=== PATIENT | male | born 1960 | race Two or more races ===

== ENCOUNTER 2017-05-02 05:21 | Inpatient (IN) | payer OTHER ==
[~2017-05-02] VITALS: Ht 177.8 cm; Wt 117.9 kg
[2017-05-02 04:00] VITALS: BP 107/66
[2017-05-02] MEDS ORDERED: ACETAMINOPHEN 325 MG TABLET ONE (06:07)
[2017-05-02] MEDS ORDERED: METOCLOPRAMIDE HCL 10 MG/2 ML VIAL ONE (06:07)
[2017-05-02] MEDS ORDERED: oxyCODONE HCL SR 10MG TAB.SR.12H PO ONE (06:07)
[2017-05-02] MEDS ORDERED: CELECOXIB 100 MG CAPSULE ONE (06:09)
[2017-05-02] MEDS ORDERED: BUPIVACAINE 0.5 % PF 150 MG/30 ML VIAL ONE (06:38)
[2017-05-02] MEDS ORDERED: MORPHINE SULFATE INJ 10 MG/ML DISP.SYRIN ONE (06:38)
[2017-05-02] MEDS ORDERED: KETOROLAC TROMETHAMINE INJ 30 MG/ML VIAL ONE ×2 (06:38→11:08)
[2017-05-02] MEDS ORDERED: BACITRACIN 50000 UNITS/VIAL ONE (06:43)
[2017-05-02] MEDS ORDERED: FENTANYL PF 100MCG/2ML AMPUL ONE (06:46)
[2017-05-02] MEDS ORDERED: MORPHINE SULFATE/PF 10 MG/10ML (1MG/ML) AMPUL ONE (06:46)
[2017-05-02] MEDS ORDERED: MIDAZOLAM HCL 2 MG/2ML VIAL ONE (06:47)
[2017-05-02] MEDS ORDERED: TRANEXAMIC ACID 1,500 MG in SODIUM CHLORIDE IRRIG SOLUTION 85 ML IR ONE (08:00)
[2017-05-02] MEDS ORDERED: oxyCODONE IR immediate release 5 MG CAPSULE ONE (11:08)
[2017-05-02] MEDS ORDERED: ONDANSETRON HCL/PF 4 MG/2 ML VIAL IV PRN (11:30)
[2017-05-02] MEDS: KETOROLAC TROMETHAMINE INJ 30 MG/ML VIAL IM SCH ×3 (11:30→22:48)
--- NOTE | 2017-05-02 11:30 | NUR ---
RN OLENA RECEIVED PATIENT FROM DAY SURGERY AWAKE ALERT ORIENTED X 4 NO PAIN AT THE MOMENT, SPINAL ANESTHESIA GIVEN FROM OR AFEBRILE WITH LEFT KNEE DRESSING, DRY AND INTACT PLACED ON HIS COMFORTABLE POSITION MONITORED CLOSELY
[2017-05-02 12:00] VITALS: BP_SYST 114; BP_SYST 126; BP_DIAS 66; BP_DIAS 82
[2017-05-02] MEDS ORDERED: ASPIRIN 300 MG/SUPP.RECT RC ONE (12:00)
[2017-05-02] MEDS ORDERED: DOCUSATE SODIUM 100 MG CAPSULE PO PRN (12:00)
[2017-05-02] MEDS ORDERED: ACETAMINOPHEN 325 MG TABLET PO PRN (12:00)
[2017-05-02] MEDS ORDERED: BISACODYL SUPP (10 MG) 10 MG/SUPP.RECT SUPP.RECT RC PRN (12:30)
[2017-05-02] MEDS ORDERED: MAGNESIUM HYDROXIDE 30 ML UDC PO PRN (12:30)
[2017-05-02] MEDS ORDERED: ASPIRIN 600 MG/SUPP.RECT RC ONE (12:30)
[2017-05-02] MEDS ORDERED: ZOLPIDEM TARTRATE 5 MG TABLET PO PRN (12:30)
[2017-05-02] MEDS: IV D5/0.45 NACL 1,000 ML IV PRN (13:10)
[2017-05-02] MEDS: HYDROMORPHONE INJ 2 MG/ML DISP.SYRIN IV PRN (14:21)
[2017-05-02] MEDS: ANCEF 1 GM/50 ML D5W IV SCH ×4 (14:23→22:40)
--- NOTE | 2017-05-02 15:17 | NUR ---
KATHLEEN HYATT ASPIRIN SUPPOSITORY 600 MG, DOUBLE ENTRY, MEDS GIVEN Addendum: 05/02/17 at 1519 by CHAN WIGGINS RN TORADOL GIVEN IN PACU
--- NOTE | 2017-05-02 15:46 | NUR ---
RN OLENA SEEN BY PT, CPM IN PLACED PATIENT REFUSED TO AMBULATE WILL BE AMBULATING KEARA
[2017-05-02 16:00] VITALS: BP 107/66
[2017-05-02] MEDS: CELECOXIB 100 MG CAPSULE PO SCH (17:23)
[2017-05-02] MEDS: ASPIRIN EC 325 MG TABLET.DR PO SCH (17:30)
[2017-05-02 20:00] VITALS: BP 106/55
--- NOTE | 2017-05-02 20:00 | NUR ---
OLENA RN NOTES RECEIVED PTS ON BED AWAKE ALERT AND VERBALLY RESPONSIVE, ABLE TO MAKE NEEDS KNOWN.,ON TELE SR ON THE MONITOR.NO SOB NO DISTRESS NOTED NO C/O OF PAIN AT THIS TIME. ON ROOM AIR SATING 97% , V/S STABLE AND AFEBRILE.S/P L TOTAL KNEE ARTHROPLASTY, WITH GOOD CIRCULATION COLOR AND SENSATION, WITH KNEE BRACE, DRESSING DRY INTACT AND PATENT NO BLEEDING NOTED, FAMILY AT BEDSIDE UPDATED WITH PTS CURRENT CONDITION .ALL NEEDS ATTENDED TOO ,CALL LIGHT WITHIN REACH , DUE MEDS GIVEN ORDERED. KEPT PTS CLEAN DRY AND COMFORTABLE.
[2017-05-02] MEDS: HYDROCODONE/APAP 5/325MG 1 EACH TABLET PO PRN (21:15)
[2017-05-02] MEDS ORDERED: CEFAZOLIN 1 GM ONE (22:33)
[2017-05-03] VITALS (7 sets, daily range): BP systolic 97–108; BP diastolic 54–61
[2017-05-03] MEDS: HYDROCODONE/APAP 5/325MG 1 EACH TABLET PO PRN ×4 (02:31→20:28)
[2017-05-03] MEDS: IV D5/0.45 NACL 1,000 ML IV PRN ×2 (02:32→15:53)
[2017-05-03] MEDS: KETOROLAC TROMETHAMINE INJ 30 MG/ML VIAL IM SCH ×3 (05:36→18:05)
--- NOTE | 2017-05-03 06:46 | NUR ---
OLENA RN NOTES PTS ON BED COMFORTABLE, WITH LEFT KNEE ELEVATED WITH PILLOW. WITH DRY INTACT DRESSING. WITH GOOD CIRCULATION AND SENSATION, CONTINUES ON IVF D5 1/2 NS AT 75CC/HR INFUSING WELL, WILL ENDORSE TO RN DAY SHIFT FOR CONTINUITY OF CARE.
[2017-05-03 07:53] LABS: BASOPHILS % (AUTO) 0.2 % (0.0-2.0); EOSINOPHILS % (AUTO) 0.6 % (0.0-6.0); HEMATOCRIT 35 % (39-51); LYMPHOCYTES # (AUTO) 1.4 /CMM (0.8-4.8); MEAN CORPUSCULAR HEMOGLOBIN 31 PG (26.0-33.0); MEAN CORPUSCULAR HGB CONC 34 g/dl (31.0-36.0); MEAN CORPUSCULAR VOLUME 92 fL (80-96); MONOCYTES # (AUTO) 0.8 /CMM (0.1-1.30); MONOCYTES % (AUTO) 11.1 % (2.0-12.0); NEUTROPHILS # (AUTO) 5.3 /CMM (1.8-8.9); NEUTROPHILS % (AUTO) 70.1 % (43.0-81.0); PLATELET COUNT (AUTO) 235 /CMM (150-450); RDW COEFFICIENT OF VARIATION 12.7 (11.5-15.0); RED BLOOD CELL COUNT(AUTO) 3.82 MIL/uL (4.5-6.0); WHITE BLOOD COUNT (AUTO) 7.6 K/uL (4.3-11.0)
--- NOTE | 2017-05-03 08:00 | NUR ---
OLENA RN NOTE PATIENT IN BED ,ALL NEEDS ATTENDED. WITH TELE MONITOR SR . NO SOB NOTED . NO C\O PAIN AT THIS TIME,LT LEG WITH IMMOBILIZER ORDERED ,ON IVF ORDERED , ABLE TO MOVE TOES ON LT FOOT , SKIN E WARM AND DRY , CAPILLARY REFILL LESS THEN 3 CEK , BED IN LOWEST AND LOCKED POSITION , CALL LIGHT WITHIN REACH , PLAN OF CARE DISCUSSED WITH PATIENT, WILL CONT TO MONITOR CLOSELY
[2017-05-03 08:14] LABS: CALCIUM, SERUM 8.2 mg/dL (8.5-10.1); CREATININE 0.9 mg/dL (0.6-1.3); POTASSIUM 3.7 mmol/L (3.5-5.1)
[2017-05-03] MEDS: CELECOXIB 100 MG CAPSULE PO SCH ×2 (08:59→16:25)
[2017-05-03] MEDS: ASPIRIN EC 325 MG TABLET.DR PO SCH ×2 (09:00→16:25)
--- NOTE | 2017-05-03 10:21 | NUR ---
OLENA RN NOTE OFFERED TO USE CPM MACHINE FOR NOW ,PATIENT REFUSED AT THIS TIME , STATED THAT WILL WAIT TILL PT WILL COME TODAY ,WILL F\U,EXPLAINED OF IMPORTANCE OF CPM MACHINE, STILL REFUSED , WANTS TO DO WITH PT
--- NOTE | 2017-05-03 11:29 | NUR ---
TIEING MACHINE OPERATOR NOTE PER DR SANDOVAL D\Kirill TELE , OK MED SURGE ALSO SEEM BY PT , ABLE TO AMBULATE ,WILL PLACE CPL MACHINE, WILL F\U
--- NOTE | 2017-05-03 12:42 | NUR ---
MS RN NOTE DEEP BREATHING EXERCISES ENCOURAGE TO DO ,INTENSIVE SPIROMETER GIVEN, PATIENT S\P SURGERY . WILL F\U
--- NOTE | 2017-05-03 14:23 | NUR ---
MS RN NOTE STILL ON CPM MACHINE , NOT IN DISTRESS ,FAMILY AT BEDSIDE ,CONT ON IVF ORDERED ,WILL CONT TO MONITOR CLOSELY
[2017-05-03] MEDS: HYDROMORPHONE INJ 2 MG/ML DISP.SYRIN IV PRN ×2 (15:44→21:18)
--- NOTE | 2017-05-03 17:13 | NUR ---
ms rn note cont on ivf as ordered ,cmp machine is removed , all needs attended, leg immobilizer placed back on leg , not in acute distress
--- NOTE | 2017-05-03 18:46 | NUR ---
MS RN NOTE ALL NEEDS ATTENDED ,NOT IN ACUTE DISTRESS ,CONT ON IVF ORDERED ,WILL CONT TO MONITOR CLOSELY
--- NOTE | 2017-05-03 19:15 | NUR ---
RN INITIAL NOTES RECEIVED PATIENT IN BED, AWAKE AND ALERT, ORIENTED. PATIENT ABLE TO MAKE NEEDS KNOWN AND PATIENT DENIES ANY PAIN AND DISCOMFORT AT THIS TIME. PATIENT WITH L LEG IMMOBILIZER IN PLACE, ELEVATED TOLERATED. PATIENT REPOSITIONED FOR COMFORT. NEEDS ANTICIPATED AND MET AT THIS TIME. WITH R HAND PIV, IVF ORDERED, NO SIGNS OF INFILTRATION NOTED. F/C IN PLACE, INTACT AND DRAINING WELL VIA GRAVITY. CALL LIGHT IN REACH. WILL MONITOR.
[2017-05-04] MEDS: KETOROLAC TROMETHAMINE INJ 30 MG/ML VIAL IM SCH ×2 (00:01→05:13)
[2017-05-04 04:00] VITALS: BP 112/69
[2017-05-04] MEDS: IV D5/0.45 NACL 1,000 ML IV PRN (05:12)
--- NOTE | 2017-05-04 07:29 | NUR ---
MS RN NOTES RECEIVED PATIENT IN BED, AWAKE AND ALERT, ORIENTED. PATIENT ABLE TO MAKE NEEDS KNOWN AND PATIENT DENIES ANY PAIN AND DISCOMFORT AT THIS TIME. PATIENT WITH L LEG IMMOBILIZER IN PLACE, ELEVATED TOLERATED. PATIENT REPOSITIONED FOR COMFORT. NEEDS ANTICIPATED AND MET AT THIS TIME. WITH R HAND IV, IVF ORDERED, NO SIGNS OF INFILTRATION NOTED. F/C IN PLACE, INTACT AND DRAINING WELL TO GRAVITY. CALL LIGHT IN REACH. WILL MONITOR.
[2017-05-04] MEDS: ASPIRIN EC 325 MG TABLET.DR PO SCH ×2 (08:15→16:35)
[2017-05-04] MEDS: HYDROCODONE/APAP 5/325MG 1 EACH TABLET PO PRN ×3 (08:15→18:49)
[2017-05-04] MEDS: CELECOXIB 100 MG CAPSULE PO SCH ×2 (08:15→16:35)
--- NOTE | 2017-05-04 10:30 | NUR ---
MS KATHLEEN BLANCHARD REMOVED ORDERED, WILL MONITOR FOR VOIDING Addendum: 05/04/17 at 1728 by MACY CHACON RN 1100 ABLE TO URINATE 100 ML OF YELLOW COLOR URINE USING URINAL WITHOUT DIFFICULTY
--- NOTE | 2017-05-04 11:30 | NUR ---
MS RN NOTE SEEN BY PT ABLE TO AMBULATE WITH PT USING A WALKER AND AFTER WALKING PLACED ON CPM MACHINE, WILL CONT TO MONITOR CLOSELY
[2017-05-04 12:00] VITALS: BP 112/69
--- NOTE | 2017-05-04 13:44 | NUR ---
MS WANG NOTE CPM MACHINE REMOVED , PATIENT C\O PAIN IN LT KNEE ICE PACK APLLYED ,WILL F\U Addendum: 05/04/17 at 1346 by MACY CHACON RN DARIEN AGUSTIN ORDERED
[2017-05-04] MEDS: HYDROMORPHONE INJ 2 MG/ML DISP.SYRIN IV PRN (14:31)
--- NOTE | 2017-05-04 15:23 | NUR ---
MS RN NOTE SPOKE WITH CHAUFFEUR ANH , ABOUT DISCHARGE TO ACUTE REHAB, STATED THAT UPDATED ALL PAPERWORK BUT STILL WORKING ON BED AVAILABLE AT [facility] ,HE SPOKE WITH SAMM CHAUFFEUR , MOST LIKELY WILL BE DISCHARGE TOMORROWS , WILL FOLLOW UP
[2017-05-04 16:00] VITALS: BP 112/60
--- NOTE | 2017-05-04 17:13 | NUR ---
MS WANG NOTE OFFERED TO USE CPM MACHINE, STILL REFUSED, EXPLAINED OF IMPORTANCE OF SHILO BUT STATED NOT AT THIS TIME, WILL F\U Addendum: 05/04/17 at 1741 by MACY CHACON RN TRANSFERRED TO ROOM [facility] BED 1
--- NOTE | 2017-05-04 18:52 | NUR ---
MS RN NOTE C\O PAIN 8/10 SCALE ON LT KNEE, BP 117/75 , NORCO I TAB GIVEN ORDERED, ALL NEEDS ATTENDED, LT LEG WITH IMMOBILIZER ORDERED, BED IN LOWEST AND LOCKED POSITION , WILL CONT TO MONITOR CLOSELY
[2017-05-04 20:00] VITALS: BP 110/69
--- NOTE | 2017-05-04 20:54 | NUR ---
received pt from day shift, a/o x4, RA, sat well, urinates in urinal, tolerates diet, immobilizer on the L leg, able to move all extremities, v/s stable, no pain, pt turned and repositioned.
[2017-05-05] MEDS: HYDROCODONE/APAP 5/325MG 1 EACH TABLET PO PRN ×3 (00:22→08:29)
[2017-05-05 04:00] VITALS: BP 111/68
--- NOTE | 2017-05-05 04:16 | NUR ---
pt is resting in the bed, v/s stable, no pain, pt turned and repositioned.
[2017-05-05 08:00] VITALS: BP 116/70
[2017-05-05] MEDS: ASPIRIN EC 325 MG TABLET.DR PO SCH (08:29)
[2017-05-05] MEDS: CELECOXIB 100 MG CAPSULE PO SCH (08:31)
--- NOTE | 2017-05-05 13:15 | NUR ---
RN NOTE NOCR 5-325 MG WAS GIVEN BUT WAS NOT SCANNED ON EMAR. Addendum: 05/05/17 at 1622 by АНДРЕЙ FAULKNER RN NORCO 5/325 MG WAS GIVEN TO PT, AT 1315 BUT SCAN DID NOT GO THROUGH [employer] SO IT WAS NOT DOCUMENTED. PER PT PAIN WAS RELIEVED FOR A WHILE.
--- NOTE | 2017-05-05 15:50 | NUR ---
RN NOTE PT DISCHARGED TO [facility], REPORT GIVEN TO ELIZA, , PT STABLE. EXIT CARE DONE, DISCHARGE INSTRUCTION GIVEN TO PT, PT HAD ALL HIS BELONGINGS WITH HIM, PAPERS SINGED, TEACHING DONE TO PT, VERBALIZED UNDERSTANDING, PT HAD IMMOBILIZER AND FWW ON DISCHARGE. PRESCRIPTION GIVEN TO PATIENT.
== END 2017-05-05 15:57 | DRG 470 ==
LOC: DS 05:21 → MEDSG1 12:08 → TELE-TD 13:46 → MEDSG1 05-03 11:18
PROVIDERS: ADMIT Nurse Practitioner Acute Care; ATTEND Nurse Practitioner Acute Care
PROC: 0SRD0JZ Replacement of Left Knee Joint with Synthetic Substitute, Open Approach (ICD-10-PCS; principal; 2017-05-02 07:00)
DX: M17.12 Unilateral primary osteoarthritis, left knee (principal); E66.9 Obesity, unspecified; Z68.37 Body mass index [BMI] 37.0-37.9, adult; G89.29 Other chronic pain; Z91.81 History of falling; Z87.828 Personal history of other (healed) physical injury and trauma
CPT/HCPCS: 36415; 73560-TC; 80048-TC; 85025-TC; 86850-TC; 86921-TC; 88305-TC; 88311-TC; 97110-TC; 97116-TC; 97530-TC; 97760-TC; A4217; J0690; J1170; J1885; J2250; J2270; J2274; J2405; J2765; J3010; J3490; J7060; J7120

== ENCOUNTER 2018-02-15 13:45 | Emergency (ER) | payer OTHER ==
[~2018-02-15] VITALS: Ht 180.3 cm; Wt 118.8 kg
[~2018-02-15 13:45] MED LIST: ASPI-869 PO; DOCU-141 PO; HYDR-552 PO; MELO15TA13 PO
[2018-02-15 14:54] LABS: BASOPHILS # (AUTO) 0.1 /CMM (0.0-0.2); BASOPHILS % (AUTO) 0.7 % (0.0-2.0); EOSINOPHILS % (AUTO) 0.6 % (0.0-6.0); HEMATOCRIT 38 % (39-51); HEMOGLOBIN 13.1 g/dL (13.5-17.5); LYMPHOCYTES % (AUTO) 11.1 % (20.0-44.0); MEAN CORPUSCULAR HEMOGLOBIN 31 PG (26.0-33.0); MEAN CORPUSCULAR HGB CONC 35 g/dl (31.0-36.0); MEAN CORPUSCULAR VOLUME 90 fL (80-96); MONOCYTES # (AUTO) 0.8 /CMM (0.1-1.30); MONOCYTES % (AUTO) 9.1 % (2.0-12.0); NEUTROPHILS % (AUTO) 78.5 % (43.0-81.0); PLATELET COUNT (AUTO) 495 /CMM (150-450); RDW COEFFICIENT OF VARIATION 11.8 (11.5-15.0); RED BLOOD CELL COUNT(AUTO) 4.21 MIL/uL (4.5-6.0)
[2018-02-15 15:07] LABS: CALCIUM, SERUM 9.1 mg/dL (8.5-10.1); CREATININE 0.9 mg/dL (0.6-1.3); POTASSIUM 4.4 mmol/L (3.5-5.1)
[2018-02-15 15:26] VITALS: BP 138/78
--- NOTE | 2018-02-15 15:26 | NUR ---
Patient discharged to home in stable condition. Written and verbal after care instructions given. Patient verbalizes understanding of instruction.
== END 2018-02-15 15:26 | disposition home or self-care (01) ==
LOC: ER 13:47
DX: K59.00 Constipation, unspecified (principal); R55 Syncope and collapse; R94.31 Abnormal electrocardiogram [ECG] [EKG]; Z96.652 Presence of left artificial knee joint; Z79.82 Long term (current) use of aspirin
CPT/HCPCS: 36415; 80048; 85025; 93005; 99285; A4606; Z7610